=== PATIENT | female | born 1985 | race Caucasian/White ===

== ENCOUNTER 2023-11-10 13:11 | Day surgery (SDC) | payer BC ==
[~2023-11-10] VITALS: Ht 157.5 cm; Wt 57.7 kg
[~2023-11-10 13:11] MED LIST: ACET325; AMOX500 PO; BEYAZ 28 TABLE1 EACH PO; CHLORELLA100 GM MC; HYDACE10B PO; HYDACE5 PO; IBUP200; IBUP400 PO; Lactated Ringer's 1,000 ML IV ONE; NAPR500; NAPR500 PO; PANT40 PO; PHENA200 PO; SERT50; SUCR1 PO; SULTRIDS PO
[2023-11-10] MEDS ORDERED: ZEPBOUND5 MG/0.5 M (13:33)
[2023-11-10] MEDS ORDERED: Lactated Ringer's 1,000 ML IV ONE (13:43)
[2023-11-10] MEDS ORDERED: propofoL 50 ML IV ONE (13:59)
[2023-11-10 14:57] VITALS: BP 123/84
== END 2023-11-10 14:59 | disposition home or self-care (01) ==
LOC: ORSCSDS 13:11
PROVIDERS: Surgery
PROC: 0DBH8ZX Excision of Cecum, Via Natural or Artificial Opening Endoscopic, Diagnostic (ICD-10-PCS; principal; 2023-11-10 14:45)
PROC: 0DBM8ZX Excision of Descending Colon, Via Natural or Artificial Opening Endoscopic, Diagnostic (ICD-10-PCS; principal; 2023-11-10 14:45)
PROC: 0DBB4ZZ Excision of Ileum, Percutaneous Endoscopic Approach (ICD-10-PCS; principal; 2023-11-10 14:45)
DX: K92.1 Melena (principal); K59.00 Constipation, unspecified; D12.4 Benign neoplasm of descending colon; D12.0 Benign neoplasm of cecum; K63.5 Polyp of colon; I10 Essential (primary) hypertension; K64.8 Other hemorrhoids; L91.8 Other hypertrophic disorders of the skin; Z87.891 Personal history of nicotine dependence
CPT/HCPCS: 88305; J2704; J7120

== ENCOUNTER 2024-09-25 08:25 | Emergency (ER) | payer BC ==
[~2024-09-25] VITALS: Ht 157.5 cm; Wt 56.2 kg
[~2024-09-25 08:25] MED LIST changes: -Lactated Ringer's 1,000 ML IV ONE; +ONDA4 PO; +ONDA4ODT MM; +ZEPBOUND5 MG/0.5 M
[2024-09-25] MEDS ORDERED: HYDHCL25 PO (08:49)
[2024-09-25] MEDS ORDERED: Ondansetron HCl 2 MG / ML 2ML Vial IV PRN (08:50)
[2024-09-25 09:23] LABS: BASOPHILS ABSOLUTE AUTO 0.06 K/mm3 (0.00-0.23); BASOPHILS PERCENT AUTO 1 % (0-2); EOSINOPHILS ABSOLUTE AUTO 0.01 K/mm3 (0.00-0.68); EOSINOPHILS PERCENT AUTO 0 % (0-6); Hematocrit 43.2 % (33.0-51.0); Hemoglobin 14.3 g/dL (11.5-16.0); IMMATURE GRAN ABSOLUTE AUTO 0.01 K/mm3 (0.00-0.10); IMMATURE GRAN PERCENT AUTO 0 % (0-1); LYMPHOCYTES ABSOLUTE AUTO 1.23 K/mm3 (0.84-5.20); LYMPHOCYTES PERCENT AUTO 18 % (21-46); MONOCYTES ABSOLUTE AUTO 0.46 K/mm3 (0.16-1.47); MONOCYTES PERCENT AUTO 7 % (4-13); Mean Corpuscular HGB Conc 33.1 g/dL (31.5-36.5); Mean Corpuscular Volume 91 fL (80-100); NEUTROPHILS ABSOLUTE AUTO 5.03 K/mm3 (1.96-9.15); NEUTROPHILS PERCENT AUTO 74 % (41-73); NRBC ABSOLUTE 0.00 K/mm3 (0.00-0.02); NRBC Auto 0.0 /100 WBC (0.0-0.2); Platelet Count 241 K/mm3 (150-400); RDW Coefficient Variation 12.9 % (11.7-14.2); RDW Standard Deviation 43.0 fL (35.1-46.3)
[2024-09-25 09:48] LABS: Alanine Aminotransfer (ALT/SGP 14.0 U/L (12-78); Albumin, Blood 3.7 g/dL (3.4-5.0); Albumin/Globulin Ratio 1.1 (0.8-1.8); Anion Gap 8.0 mmol/L (3-11); Aspartate Aminotrans (AST/SGOT 13.0 U/L (12-37); Bilirubin, Total 0.6 mg/dL (0.1-1.0); Blood Urea Nitrogen 11.0 mg/dL (8-24); CO2, Blood 25.0 mmol/L (21-32); Calcium, Blood 9.4 mg/dL (8.5-10.1); Chloride, Blood 109.0 mmol/L (98-108); Creatinine, Blood 0.79 mg/dL (0.40-1.00); Globulin, Blood 3.3 g/dL (2.2-4.0); Glucose, Blood 95.0 mg/dL (70-99); Potassium, Blood 3.8 mmol/L (3.5-5.5); Sodium, Blood 138.0 mmol/L (136-145); Total Protein, Blood 7.0 g/dL (6.4-8.2)
[2024-09-25] MEDS ORDERED: Ketorolac Tromethamine 15mg Vial IV ONE (10:35)
[2024-09-25] MEDS ORDERED: LORA.5 PO (10:42)
[2024-09-25 10:48] VITALS: BP 145/91
== END 2024-09-25 10:51 | disposition home or self-care (01) ==
LOC: ER 08:25
PROVIDERS: Student in an Organized Health Care Education/Training Program
DX: R07.2 Precordial pain (principal); Z88.0 Allergy status to penicillin; Z79.899 Other long term (current) drug therapy
CPT/HCPCS: 71046; 80053; 84484; 85025; 93005; 93010; 99285-25

== ENCOUNTER 2024-12-12 09:43 | Emergency (ER) | payer BC ==
[~2024-12-12] VITALS: Ht 157.5 cm; Wt 62.1 kg
[~2024-12-12 09:43] MED LIST changes: +HYDHCL25 PO; +LORA.5 PO
[2024-12-12 09:53] VITALS: BP 133/94
[2024-12-12] MEDS ORDERED: Ondansetron HCl 2 MG / ML 2ML Vial IV ONE (09:55)
[2024-12-12] MEDS ORDERED: Ketorolac Tromethamine 15mg Vial IV ONE (09:55)
[2024-12-12] MEDS ORDERED: NS 1,000 ML IV SCH (09:55)
[2024-12-12 10:26] LABS: BASOPHILS ABSOLUTE AUTO 0.08 K/mm3 (0.00-0.23); BASOPHILS PERCENT AUTO 1 % (0-2); EOSINOPHILS ABSOLUTE AUTO 0.06 K/mm3 (0.00-0.68); EOSINOPHILS PERCENT AUTO 1 % (0-6); Hematocrit 45.7 % (33.0-51.0); Hemoglobin 15.3 g/dL (11.5-16.0); IMMATURE GRAN ABSOLUTE AUTO 0.02 K/mm3 (0.00-0.10); IMMATURE GRAN PERCENT AUTO 0 % (0-1); LYMPHOCYTES ABSOLUTE AUTO 1.36 K/mm3 (0.84-5.20); LYMPHOCYTES PERCENT AUTO 19 % (21-46); MONOCYTES ABSOLUTE AUTO 0.47 K/mm3 (0.16-1.47); MONOCYTES PERCENT AUTO 7 % (4-13); Mean Corpuscular HGB Conc 33.5 g/dL (31.5-36.5); Mean Corpuscular Volume 91 fL (80-100); NEUTROPHILS ABSOLUTE AUTO 5.23 K/mm3 (1.96-9.15); NEUTROPHILS PERCENT AUTO 73 % (41-73); NRBC ABSOLUTE 0.00 K/mm3 (0.00-0.02); NRBC Auto 0.0 /100 WBC (0.0-0.2); Platelet Count 280 K/mm3 (150-400); RDW Coefficient Variation 12.9 % (11.7-14.2); RDW Standard Deviation 42.6 fL (35.1-46.3)
[2024-12-12 10:48] LABS: Alanine Aminotransfer (ALT/SGP 21.0 U/L (12-78); Albumin, Blood 4.1 g/dL (3.4-5.0); Albumin/Globulin Ratio 1.2 (0.8-1.8); Anion Gap 8.0 mmol/L (3-11); Aspartate Aminotrans (AST/SGOT 19.0 U/L (12-37); Bilirubin, Total 0.8 mg/dL (0.1-1.0); Blood Urea Nitrogen 19.0 mg/dL (8-24); CO2, Blood 29.0 mmol/L (21-32); Calcium, Blood 9.0 mg/dL (8.5-10.1); Chloride, Blood 103.0 mmol/L (98-108); Creatinine, Blood 0.88 mg/dL (0.40-1.00); Globulin, Blood 3.3 g/dL (2.2-4.0); Glucose, Blood 99.0 mg/dL (70-99); Magnesium, Blood 2.1 mg/dL (1.6-2.4); Potassium, Blood 4.5 mmol/L (3.5-5.5); Sodium, Blood 135.0 mmol/L (136-145); Total Protein, Blood 7.4 g/dL (6.4-8.2)
[2024-12-12 11:01] LABS: Source, Urine Clean Catch
[2024-12-12 11:06] LABS: Bilirubin, Urine Neg (Neg); Color, Urine Yellow (P-Yellow); Glucose Qualitative, Urine Neg (Neg); Ketones, Urine Neg (Neg); Leukocyte Esterase, Urine Neg (Neg); Protein, Urine Neg (Neg); Specific Gravity, Urine 1.010 (1.003-1.022); Urobilinogen, Urine NORM (Normal)
[2024-12-12 11:38] LABS: White Blood Cells, Urine Not Seen /hpf (0-5)
[2024-12-12] MEDS ORDERED: ONDA4 PO (11:57)
== END 2024-12-12 12:12 | disposition home or self-care (01) ==
LOC: ER 09:43
PROVIDERS: Emergency Medicine
DX: R10.32 Left lower quadrant pain (principal); F41.9 Anxiety disorder, unspecified; F17.210 Nicotine dependence, cigarettes, uncomplicated; Z88.0 Allergy status to penicillin; Z79.899 Other long term (current) drug therapy
CPT/HCPCS: 80053; 81001; 81025; 83690; 83735; 85025; 99284

== ENCOUNTER 2024-12-14 10:48 | Emergency (ER) | payer BC ==
[~2024-12-14] VITALS: Ht 157.5 cm; Wt 62.6 kg
[2024-12-14 11:03] LABS: Source, Urine Clean Catch
[2024-12-14] MEDS ORDERED: Ondansetron HCl 2 MG / ML 2ML Vial IV ONE (11:05)
[2024-12-14] MEDS ORDERED: Ketorolac Tromethamine 15mg Vial IV ONE (11:05)
[2024-12-14] MEDS ORDERED: NS 1,000 ML IV SCH (11:05)
[2024-12-14 11:09] LABS: Glucose Qualitative, Urine Neg (Neg); Ketones, Urine Neg (Neg); Leukocyte Esterase, Urine Neg (Neg); Protein, Urine 2+ (Neg); Specific Gravity, Urine 1.025 (1.003-1.022); Urobilinogen, Urine 3+ (Normal)
[2024-12-14 11:25] LABS: Bilirubin, Urine 3+ (Neg); Color, Urine Orange (P-Yellow)
[2024-12-14 11:26] LABS: BASOPHILS ABSOLUTE AUTO 0.09 K/mm3 (0.00-0.23); BASOPHILS PERCENT AUTO 1 % (0-2); EOSINOPHILS ABSOLUTE AUTO 0.23 K/mm3 (0.00-0.68); EOSINOPHILS PERCENT AUTO 3 % (0-6); Hematocrit 45.6 % (33.0-51.0); Hemoglobin 15.1 g/dL (11.5-16.0); IMMATURE GRAN ABSOLUTE AUTO 0.01 K/mm3 (0.00-0.10); IMMATURE GRAN PERCENT AUTO 0 % (0-1); LYMPHOCYTES ABSOLUTE AUTO 1.54 K/mm3 (0.84-5.20); LYMPHOCYTES PERCENT AUTO 19 % (21-46); MONOCYTES ABSOLUTE AUTO 0.62 K/mm3 (0.16-1.47); MONOCYTES PERCENT AUTO 8 % (4-13); Mean Corpuscular HGB Conc 33.1 g/dL (31.5-36.5); Mean Corpuscular Volume 91 fL (80-100); NEUTROPHILS ABSOLUTE AUTO 5.71 K/mm3 (1.96-9.15); NEUTROPHILS PERCENT AUTO 70 % (41-73); NRBC ABSOLUTE 0.00 K/mm3 (0.00-0.02); NRBC Auto 0.0 /100 WBC (0.0-0.2); Platelet Count 303 K/mm3 (150-400); RDW Coefficient Variation 12.8 % (11.7-14.2); RDW Standard Deviation 42.2 fL (35.1-46.3)
[2024-12-14 11:38] LABS: Red Blood Cells, Urine 0-2 /hpf (0-2); White Blood Cells, Urine 0-2 /hpf (0-5)
[2024-12-14 11:51] LABS: Alanine Aminotransfer (ALT/SGP 22.0 U/L (12-78); Albumin, Blood 4.3 g/dL (3.4-5.0); Albumin/Globulin Ratio 1.3 (0.8-1.8); Anion Gap 8.0 mmol/L (3-11); Aspartate Aminotrans (AST/SGOT 24.0 U/L (12-37); Bilirubin, Total 0.8 mg/dL (0.1-1.0); Blood Urea Nitrogen 15.0 mg/dL (8-24); CO2, Blood 28.0 mmol/L (21-32); Calcium, Blood 9.2 mg/dL (8.5-10.1); Chloride, Blood 103.0 mmol/L (98-108); Creatinine, Blood 0.93 mg/dL (0.40-1.00); Globulin, Blood 3.4 g/dL (2.2-4.0); Glucose, Blood 115.0 mg/dL (70-99); Potassium, Blood 4.1 mmol/L (3.5-5.5); Sodium, Blood 135.0 mmol/L (136-145); Total Protein, Blood 7.7 g/dL (6.4-8.2)
[2024-12-14] MEDS ORDERED: HYDROmorphone HCl/Pf 1MG SYR IV ONE (15:10)
[2024-12-14 15:13] LABS: Source, Urine Clean Catch
[2024-12-14 15:35] LABS: Glucose Qualitative, Urine Neg (Neg); Ketones, Urine 2+ (Neg); Leukocyte Esterase, Urine Neg (Neg); Protein, Urine 2+ (Neg); Specific Gravity, Urine 1.020 (1.003-1.022); Urobilinogen, Urine 4+ (Normal)
[2024-12-14 15:47] LABS: Bilirubin, Urine 3+ (Neg); Color, Urine Orange (P-Yellow)
[2024-12-14 16:12] VITALS: BP 133/83
[2024-12-14] MEDS ORDERED: Norco 5-325 Ta1 EACH PO (16:34)
[2024-12-14] MEDS ORDERED: IBU600 M1 PO (16:34)
[2024-12-14] MEDS ORDERED: Flomax0.4 MG PO (16:34)
[2024-12-14] MEDS ORDERED: ONDA4ODT MM (16:34)
== END 2024-12-14 17:04 | disposition home or self-care (01) ==
LOC: ER 10:48
PROVIDERS: Physician Assistant
DX: N13.2 Hydronephrosis with renal and ureteral calculous obstruction (principal); Z79.899 Other long term (current) drug therapy
CPT/HCPCS: 74176; 80053; 81001; 83690; 85025; 87086; 96374; 96375; 99284-25; J1171; J1885; J2405; J7030

== ENCOUNTER 2024-12-19 08:14 | Emergency (ER) | payer BC ==
[~2024-12-19] VITALS: Ht 157.5 cm; Wt 61.2 kg
[~2024-12-19 08:14] MED LIST changes: +Flomax0.4 MG PO; +IBU600 M1 PO; +Norco 5-325 Ta1 EACH PO
[2024-12-19 08:46] LABS: BASOPHILS ABSOLUTE AUTO 0.09 K/mm3 (0.00-0.23); BASOPHILS PERCENT AUTO 1 % (0-2); EOSINOPHILS ABSOLUTE AUTO 0.16 K/mm3 (0.00-0.68); EOSINOPHILS PERCENT AUTO 2 % (0-6); Hematocrit 45.4 % (33.0-51.0); Hemoglobin 15.4 g/dL (11.5-16.0); IMMATURE GRAN ABSOLUTE AUTO 0.01 K/mm3 (0.00-0.10); IMMATURE GRAN PERCENT AUTO 0 % (0-1); LYMPHOCYTES ABSOLUTE AUTO 1.94 K/mm3 (0.84-5.20); LYMPHOCYTES PERCENT AUTO 29 % (21-46); MONOCYTES ABSOLUTE AUTO 0.61 K/mm3 (0.16-1.47); MONOCYTES PERCENT AUTO 9 % (4-13); Mean Corpuscular HGB Conc 33.9 g/dL (31.5-36.5); Mean Corpuscular Volume 90 fL (80-100); NEUTROPHILS ABSOLUTE AUTO 3.92 K/mm3 (1.96-9.15); NEUTROPHILS PERCENT AUTO 58 % (41-73); NRBC ABSOLUTE 0.00 K/mm3 (0.00-0.02); NRBC Auto 0.0 /100 WBC (0.0-0.2); Platelet Count 258 K/mm3 (150-400); RDW Coefficient Variation 12.8 % (11.7-14.2); RDW Standard Deviation 42.2 fL (35.1-46.3)
[2024-12-19 09:07] LABS: Alanine Aminotransfer (ALT/SGP 15.0 U/L (12-78); Albumin, Blood 4.0 g/dL (3.4-5.0); Albumin/Globulin Ratio 1.2 (0.8-1.8); Anion Gap 7.0 mmol/L (3-11); Aspartate Aminotrans (AST/SGOT 12.0 U/L (12-37); Bilirubin, Total 0.6 mg/dL (0.1-1.0); Blood Urea Nitrogen 10.0 mg/dL (8-24); CO2, Blood 28.0 mmol/L (21-32); Calcium, Blood 8.9 mg/dL (8.5-10.1); Chloride, Blood 105.0 mmol/L (98-108); Creatinine, Blood 0.81 mg/dL (0.40-1.00); Globulin, Blood 3.2 g/dL (2.2-4.0); Glucose, Blood 99.0 mg/dL (70-99); Potassium, Blood 3.6 mmol/L (3.5-5.5); Sodium, Blood 136.0 mmol/L (136-145); Total Protein, Blood 7.2 g/dL (6.4-8.2)
[2024-12-19 11:30] VITALS: BP 108/83
== END 2024-12-19 11:34 | disposition home or self-care (01) ==
LOC: ER 08:14
PROVIDERS: Emergency Medicine
DX: R55 Syncope and collapse (principal); R00.2 Palpitations; T44.6X5A Adverse effect of alpha-adrenoreceptor antagonists, initial encounter; N20.0 Calculus of kidney; F17.210 Nicotine dependence, cigarettes, uncomplicated; Z79.899 Other long term (current) drug therapy
CPT/HCPCS: 36415; 71045; 80053; 84443; 84484; 85025; 85379; 93005; 93010; 99284-25

== ENCOUNTER → 2025-01-06 | Outpatient (CLI) | payer BC ==
[2025-01-13 11:33] LABS: CALCIUM, URINE - PER 24H 122 mg/d (100-250); CALCIUM, URINE - PER VOLUME 6.4 mg/dL; CHLORIDE, URINE - PER 24H 61 mmol/d (140-250); CHLORIDE, URINE - PER VOLUME 32 mmol/L; CITRIC ACID, URINE - PER 24H 475 mg/d (320-1240); CITRIC ACID,URINE - PER VOLUME 250 mg/L; CREATININE, URINE - PER 24H 1045 mg/d (700-1600); CREATININE, URINE - PER VOLUME 55 mg/dL; HOURS COLLECTED 24 hr; MAGNESIUM, URINE - PER VOLUME 5.4 mg/dL; MAGNESIUM, URINE PER 24H 103 mg/d (12-199); OXALATE, URINE - PER 24H 32 mg/d (13-40); OXALATE, URINE - PER VOLUME 17 mg/L; PHOSPHORUS, URINE - PER 24H 627 mg/d (400-1300); PHOSPHORUS, URINE - PER VOLUME 33 mg/dL; POTASSIUM, URINE - PER 24H 27 mmol/d (25-125); POTASSIUM, URINE - PER VOLUME 14 mmol/L; SODIUM, URINE - PER 24H 63 mmol/d (51-286); SODIUM, URINE - PER VOLUME 33 mmol/L; SULFATE, URINE - PER 24H < 5 mmol/d (6-30); SULFATE, URINE - PER VOLUME <5 mmol/L; URIC ACID, URINE - PER 24H 294 mg/d (250-750); URIC ACID, URINE - PER VOLUME 15.5 mg/dL; URINE SUPERSATURATION INTERP Normal; URINE SUPERSATURATION, CAHPO4 0.78; URINE SUPERSATURATION, CAOX 4.48; URINE SUPERSATURATION, UA CALC 0.28
== END ==
LOC: LAB SHORT 03:00 → LAB 03:00
PROVIDERS: Urology
DX: N13.2 Hydronephrosis with renal and ureteral calculous obstruction (principal)
CPT/HCPCS: 81003; 81050; 82131; 82140; 82340; 82436; 82507; 82570; 83735; 83935; 83945; 84105; 84133; 84300; 84392; 84560